=== PATIENT | female | born 1975 | race Caucasian/White ===

== ENCOUNTER 2018-10-18 21:38 | Emergency (ER) | payer MEDICAID ==
[~2018-10-18] VITALS: Ht 160 cm; Wt 63.9 kg
[~2018-10-18 21:38] MED LIST: FER325 PO; IBUP800T48 PO
[2018-10-18 21:45] VITALS: Ht 160 cm; Wt 63.9 kg
[2018-10-19 00:56] VITALS: RESP 13
--- NOTE | 2018-10-19 01:06 | ERD ---
ER Documentation Chief Complaint Chief Complaint CHEST PAIN RADIATES TO LEFT ARM AND FACE X 2 HOURS HPI This is a 43-year-old female with no previous medical problems who presents to the emergency room for evaluation of chest pain. The patient states that she has had chest pain for 24 hours which has been constant however she noted that the chest pain started to radiate to her left arm for the past 2 hours. Patient describes her pain as an achy pain worse with movement of her left arm. She denies any headache, diaphoresis, shortness of breath, nausea or vomiting associated with this. ROS All systems reviewed and are negative except as per history of present illness. Allergies Allergies: Coded Allergies: loratadine (Verified Allergy, Mild, rash, 07/21/10) No Known Allergy (Verified , 01/30/07) PMhx/Soc History of Surgery: Yes (CSECTION) Anesthesia Reaction: No Hx Neurological Disorder: No Hx Respiratory Disorders: No Hx Cardiac Disorders: No Hx Psychiatric Problems: No Hx Miscellaneous Medical Probl: No (NO OTHER MEDICAL PROBLEMS) Hx Alcohol Use: No Hx Substance Use: No Hx Tobacco Use: No Smoking Status: Never smoker Physical Exam Vitals Vital Signs Date Temp Pulse Resp B/P (MAP) Pulse Ox O2 O2 Flow FiO2 Time Delivery Rate 10/19/18 66 13 125/85 100 Room Air 00:56 (98) 10/18/18 98.5 91 18 167/93 99 21:45 (117) Physical Exam Const: No acute distress Head: Atraumatic Eyes: Normal Conjunctiva ENT: Normal External Ears, Nose and Mouth. Neck: Full range of motion. No meningismus. Resp: Clear to auscultation bilaterally Cardio: Regular rate and rhythm, no murmurs Abd: Soft, non tender, non distended. Normal bowel sounds Skin: No petechiae or rashes Back: No midline or flank tenderness Ext: No cyanosis, or edema Neur: Awake and alert Psych: Normal Mood and Affect Result Diagram: 10/18/18 4365 10/18/18 7326 Results 24 hrs Laboratory Tests Test 10/18/18 23:56 White Blood Count 6.5 10^3/ul Red Blood Count 3.90 10^6/ul Hemoglobin 8.4 g/dl Hematocrit 28.2 % Mean Corpuscular Volume 72.3 fl Mean Corpuscular Hemoglobin 21.5 pg Mean Corpuscular Hemoglobin Concent 29.8 g/dl Red Cell Distribution Width 21.0 % Platelet Count 425 10^3/UL Mean Platelet Volume 9.4 fl Immature Granulocytes % 0.300 % Neutrophils % 51.5 % Lymphocytes % 35.9 % Monocytes % 8.5 % Eosinophils % 3.2 % Basophils % 0.6 % Nucleated Red Blood Cells % 0.0 /100WBC Immature Granulocytes # 0.020 10^3/ul Neutrophils # 3.3 10^3/ul Lymphocytes # 2.3 10^3/ul Monocytes # 0.6 10^3/ul Eosinophils # 0.2 10^3/ul Basophils # 0.0 10^3/ul Nucleated Red Blood Cells # 0.0 10^3/ul Sodium Level 142 mmol/L Potassium Level 3.5 mmol/L Chloride Level 107 mmol/L Carbon Dioxide Level 26 mmol/L Anion Gap 9 Blood Urea Nitrogen 15 mg/dl Creatinine 0.66 mg/dl Est Glomerular Filtrat Rate mL/min > 60 mL/min Glucose Level 105 mg/dl Calcium Level 9.1 mg/dl Troponin I < 0.012 ng/ml Procedures/[facility] EKG: Rate/Rhythm: [Normal Sinus Rhythm] QRS, ST, T-waves: [No changes consistent w/ acute ischemia] Impression: [No evidence of ischemia or arrhythmia] Chest X-ray 1V Interpreted by me: Soft Tissue: No acute abnormalities Bones: No acute abnormalities Mediastinum/Cardiac Silhouette/Lungs: [No acute abnormalities] This 43-year-old female presents to the emergency room for evaluation of chest pain. On my exam the patient is afebrile, nontoxic-appearing, hemodynamically stable. Her EKG is nonischemic, chest x-ray is clear, and lab work was obtained and shows microcytic anemia however her troponin level is normal. On my reevaluation of this patient the patient is sitting in bed comfortably, her pulse ox is 100% on room air, and she is hemodynamically stable. The patient was given Motrin with mild relief of her pain. The patient does have a heart score of 1 at this time and has a low risk for MAC. She will be discharged home with a prescription for ferrous sulfate, and Motrin for her chest pain. Both her and her feel comfortable with her plan of care were given strict return precautions Departure Diagnosis: Primary Impression: Chest pain Additional Impression: Microcytic anemia Condition: Stable DONOVAN VILLALTA DO Oct 19, 2018 01:06
[2018-10-19 01:22] VITALS: BP 126/87; PULSE 63
[2018-10-19] MEDS ORDERED: IBUPROFEN 800 MG TAB PO ONE (01:30)
== END 2018-10-19 01:22 | disposition home or self-care (01) ==
LOC: E/R 21:38
DX: D50.9 Iron deficiency anemia, unspecified (principal)
CPT/HCPCS: 36415; 71045; 80048; 84484; 85025; Z7502; Z7610; 93005